=== PATIENT | female | born 1965 | race Hispanic/Latino ===

== ENCOUNTER 2017-03-16 14:14 | Inpatient (IN) | payer SELFPAY ==
[~2017-03-16] VITALS: Ht 157.5 cm; Wt 67.4 kg
[~2017-03-16 14:14] MED LIST: ASPIRIN81 MG PO
[2017-03-16] MEDS ORDERED: SODIUM CHLORIDE 0.9% 1000ML 1,000 ML IV STA ×2 (15:43→15:53)
[2017-03-16] MEDS ORDERED: KETOROLAC TROMETHAMINE 30 MG/ML VIAL INJ STA (15:54)
[2017-03-16 15:56] LABS: BILIRUBIN,URINE NEGATIVE (NEGATIVE); CLARITY,URINE CLEAR (CLEAR); COLOR,URINE YELLOW (YELLOW); KETONES,URINE NEGATIVE (NEGATIVE); LEUKOCYTE ESTERASE ,URINE TRACE (NEGATIVE); NITRITE,URINE NEGATIVE (NEGATIVE); PROTEIN,URINE DIPSTICK NEGATIVE (NEGATIVE); URINE UROBILINOGEN 0.2 mg/dL (0.2 - 1)
[2017-03-16 15:56] LABS: BASOPHILS % 0.5 % (0.0-1.0); EOSINOPHILS % 0.5 % (0.0-6.0); HEMATOCRIT 42.7 % (34.2-44.1); HEMOGLOBIN 14.4 g/dL (12.0-16.0); LYMPHOCYTES # (AUTO) 2.2 (1.0-3.2); LYMPHOCYTES % 25.1 % (18.0-39.1); MEAN CORPUSCULAR HEMOGLOBIN 29.3 pg (28-32); MEAN CORPUSCULAR HGB CONC 33.7 g/dL (31-35); MEAN CORPUSCULAR VOLUME 86.8 fL (81-99); MONOCYTES # (AUTO) 0.6 (0.2-0.8); NEUTROPHILS # (AUTO) 5.8 (2.1-6.9); NEUTROPHILS % 66.6 % (38.7-80.0); PLATELET COUNT 246 x10e3/uL (140-360); RED BLOOD COUNT 4.92 x10e6/uL (3.6-5.1); RED CELL DISTRIBUTION WIDTH 13.1 % (11.7-14.4)
[2017-03-16 15:57] LABS: WBC,URINE (MAN) 0-5 /HPF (0-5)
[2017-03-16] MEDS ORDERED: ONDANSETRON HCL INJ 2 MG/ML VIAL IV STA (15:57)
[2017-03-16 15:58] LABS: BACTERIA,URINE FEW /HPF; EPITHELIAL CELLS,URINE FEW /LPF
[2017-03-16] MEDS ORDERED: ONDANSETRON HCL INJ 2 MG/ML VIAL ONE (16:03)
[2017-03-16 16:16] LABS: ALANINE AMINOTRANSFERASE 19 IU/L (0-55); ALBUMIN 4.3 g/dL (3.5-5.0); ALBUMIN/GLOBULIN RATIO 1.3 (0.8-2.0); ALKALINE PHOSPHATASE 92 IU/L (40-150); ANION GAP 12.3 mmol/L (8-16); BLOOD UREA NITROGEN 13 mg/dL (7-26); BUN/CREATININE RATIO 17 (6-25); CALCIUM 9.5 mg/dL (8.4-10.2); CARBON DIOXIDE 26 mmol/L (22-29); CHLORIDE 107 mmol/L (98-107); CREATININE, SERUM 0.75 mg/dL (0.57-1.11); EST GLOMERULAR FILTRATION RATE > 60 ML/MIN (60-); GLUCOSE 109 mg/dL (74-118); POTASSIUM 4.3 mmol/L (3.5-5.1); SODIUM 141 mmol/L (136-145)
--- NOTE | 2017-03-16 18:27 | Diagnostic Imaging Report ---
PROCEDURE:US GALLBLADDER COMPARISON:[facility], US, US GALLBLADDER, 09/19/2012, 23:36. INDICATIONS:ABD PAIN TECHNIQUE: Mauricio-scale and color doppler transverse and longitudinal images of the right upper quadrant of the abdomen were obtained. FINDINGS: Liver: 11.4 cm in right mid-clavicular line. Increased echogenicity. Several cystic lesions are again noted in the liver, as follows: * 1.5 x 1.1 x 1.7 cm cystic anechoic lesion in the left lobe. * 1.8 x 1.4 1.2 cm hypoechoic lesion in the right lobe adjacent to the gallbladder. * 2.7 x 2.0 x 2.9 cm anechoic cystic lesion in the right lobe anterior inferior aspect (previously measured 2.2 x 1.7 x 2.0 cm). * No other focal lesions. Main portal vein: 1.0 cm, hepatopetal flow Gallbladder: Several echogenic, shadowing stones are noted in the gallbladder lumen near the neck. Multiple echogenic non-shadowing foci with ringdown artifact in the gallbladder wall, predominantly in the body and fundus. Mild gallbladder wall thickening, measuring 0.4 cm. Common Bile Duct: 0.4 cm Sonographic Valladares's sign: Positive Right kidney: 9.8 cm. Normal echogenicity. No solid masses or hydronephrosis. Previously visualized hyperechoic focus in the right kidney is not seen in the current exam. Pancreas: The visualized portions are unremarkable. Inferior vena cava: Patent Aorta: Within normal limits Ascites: None in the right upper quadrant of the abdomen. CONCLUSION: 1. Cholelithiasis with mild gallbladder wall thickening and positive Valladares's sign. Findings highly suspicious for acute cholecystitis. 2. 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 3. Simple hepatic cysts, as described. The largest cyst in the right lobe has increased in size since prior ultrasound dated 09/19/2012. Mainor Miller M.D. Dictated by: Mainor Miller M.D. on 03/16/2017 at 18:36 Electronically approved by: Mainor Miller M.D. on 03/16/2017 at 18:36
[2017-03-16] MEDS ORDERED: MORPHINE SULFATE 5 MG/ML VIAL IV ONE (18:45)
[2017-03-16] MEDS ORDERED: CEFOXITIN 1GM/ DEXTROSE 50ML 50 ML IV SCH (21:00)
[2017-03-16] MEDS: CEFOXITIN SOD 1 GM VIAL IV SCH (21:50)
[2017-03-16] MEDS: SODIUM CHLORIDE 0.9% 1000ML 1,000 ML IV SCH (21:59)
[2017-03-16] MEDS: METRONIDAZOLE 500MG/NS 100ML 100 ML IV SCH (22:00)
[2017-03-16 22:47] VITALS: BP 148/70
[2017-03-16 23:54] VITALS: BP 148/70
[2017-03-17] MEDS: METRONIDAZOLE 500MG/NS 100ML 100 ML IV SCH ×4 (03:14→20:23)
[2017-03-17 04:00] VITALS: BP 110/64
[2017-03-17] MEDS: SODIUM CHLORIDE 0.9% 1000ML 1,000 ML IV SCH ×3 (04:46→22:50)
[2017-03-17] MEDS: CEFOXITIN SOD 1 GM VIAL IV SCH ×3 (05:09→20:07)
--- NOTE | 2017-03-17 07:06 | Consultation ---
DATE OF CONSULTATION: March 17, 2017 Patient is a 51-year-old female who presents with complaints of epigastric and right upper quadrant abdominal pain. Patient says she has had the pain for 3 weeks. Came to the emergency room where workup revealed gallstones with possibly mildly thickened wall. She has not had any fever. She has some nausea. No vomiting. There are no symptoms of jaundice. PAST MEDICAL HISTORY: Otherwise unremarkable. She denies chronic medical problems. She has not had previous surgery. CURRENT MEDICATIONS: No current medications. ALLERGIES: NO KNOWN ALLERGIES. FAMILY HISTORY: Noncontributory. SOCIAL HISTORY: The patient does not smoke cigarettes or drink alcohol. REVIEW OF SYSTEMS: As stated above. She has had no fever. No weight loss. PHYSICAL EXAMINATION GENERAL: The patient is awake, alert and in no distress. VITALS: Normal. HEENT: Unremarkable. Sclerae are nonicteric. NECK: Supple no masses. LUNGS: Equal breath sounds are clear bilaterally. CARDIAC: Regular rate and rhythm with no murmur. ABDOMEN: Soft. There is mild epigastric tenderness. There is no mass. There are no signs of peritonitis. There is no organomegaly. EXTREMITIES: No edema. Pulses are palpable. NEUROLOGIC: Grossly intact. LAB TESTS: White blood cell count is normal with normal differential. Hemoglobin and hematocrit are normal. Chemistries also are normal. ASSESSMENT: This is a 51-year-old female with symptoms suggestive of acute and chronic cholecystitis with cholelithiasis. She will likely benefit from cholecystectomy. PLAN: Schedule for tomorrow. Procedure was explained to the patient. Thank you asking see me to see Ms. Schmitz. Job#: [id number] SHABBIR
[2017-03-17 07:20] LABS: BASOPHILS % 0.3 % (0.0-1.0); EOSINOPHILS # (AUTO) 0.1 (0.0-0.4); HEMATOCRIT 37.4 % (34.2-44.1); HEMOGLOBIN 12.4 g/dL (12.0-16.0); LYMPHOCYTES % 35.2 % (18.0-39.1); MEAN CORPUSCULAR HGB CONC 33.2 g/dL (31-35); MEAN CORPUSCULAR VOLUME 87.4 fL (81-99); MONOCYTES # (AUTO) 0.5 (0.2-0.8); MONOCYTES % 8.2 % (4.4-11.3); NEUTROPHILS # (AUTO) 3.2 (2.1-6.9); NEUTROPHILS % 55.1 % (38.7-80.0); PLATELET COUNT 202 x10e3/uL (140-360); RED BLOOD COUNT 4.28 x10e6/uL (3.6-5.1); RED CELL DISTRIBUTION WIDTH 13.2 % (11.7-14.4)
[2017-03-17 07:42] LABS: ALANINE AMINOTRANSFERASE 19 IU/L (0-55); ALBUMIN 3.2 g/dL (3.5-5.0); ALBUMIN/GLOBULIN RATIO 1.3 (0.8-2.0); ALKALINE PHOSPHATASE 64 IU/L (40-150); AMYLASE 45 U/L (25-125); ANION GAP 9.1 mmol/L (8-16); BLOOD UREA NITROGEN 12 mg/dL (7-26); BUN/CREATININE RATIO 17 (6-25); CALCIUM 8.4 mg/dL (8.4-10.2); CARBON DIOXIDE 25 mmol/L (22-29); CHLORIDE 112 mmol/L (98-107); EST GLOMERULAR FILTRATION RATE > 60 ML/MIN (60-); GLUCOSE 102 mg/dL (74-118); LIPASE 15 U/L (8-78); POTASSIUM 4.1 mmol/L (3.5-5.1); SODIUM 142 mmol/L (136-145)
[2017-03-17 08:42] VITALS: BP 147/73
[2017-03-17] MEDS: ACETAMINOPHEN 325 MG TAB PO PRN ×2 (09:48→14:47)
[2017-03-17] MEDS: HYDROMORPHONE 2MG/ML INJ IV PRN ×2 (09:52→14:47)
[2017-03-17] MEDS: ONDANSETRON HCL INJ 2 MG/ML VIAL IV PRN ×2 (09:52→20:07)
--- NOTE | 2017-03-17 12:02 | History and Physical ---
CHIEF COMPLAINT: Abdominal pain and chest discomfort. HISTORY OF PRESENT ILLNESS: Ms. Schmitz is a 51-year-old female. She presented with abdominal pain to the emergency room. In the emergency room, patient underwent an ultrasound of the gallbladder, which showed cholelithiasis with mild gallbladder wall thickening and positive Valladares sign. Patient was admitted for cholelithiasis and abdominal pain. IV antibiotics and IV pain medications were started. Patient only speaks Swedish. Daughter is at the bedside. She speaks Swedish as well. She told me the patient has episodes of high blood pressure and has dizziness in the past. She does not see a physician on a regular basis. REVIEW OF SYSTEMS: GENERAL: Denies any fever or chills. HEAD: Denies any head trauma, head injury. ENT: Denies any earache, nosebleed, throat pain. CVS: Denies any chest pain. RESPIRATORY: Denies any shortness of breath. GI: Abdominal pain. Occasional dizziness. The rest of the review of systems is negative except as in HPI. PAST MEDICAL HISTORY: Possible hypertension. PAST SURGICAL HISTORY: Surgery for kidney stones in 2016. 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 She denies any alcohol use. PHYSICAL EXAMINATION: VITAL SIGNS: Temperature 98, pulse of 77, blood pressure 147/73, respiratory rate of 18. SKIN: Warm and dry. CHEST: Clear. ABDOMEN: Soft. Mild right upper quadrant tenderness. Bowel sounds audible. No hepatosplenomegaly. EXTREMITIES: No clubbing, cyanosis or edema. NEUROLOGIC: Awake and alert. No focal neurological deficit. LABORATORIES: White count of 8000, hemoglobin 14, platelets 246. Chemistry within normal limits. AST, ALT are within normal limits. ASSESSMENT/PLAN: 1. Ms. Schmitz is a 51-year-old female who presented with abdominal pain. Ultrasound showing cholelithiasis. Plan surgical consult. 2. Continue IV hydration. Blood pressure slightly on the higher side. Likely this is because of the pain. Continue IV analgesics. Job#: [id number] [place]
[2017-03-17 13:46] VITALS: BP 122/63
[2017-03-17 18:54] VITALS: BP 128/66
[2017-03-17 20:00] VITALS: BP 120/62
[2017-03-17 20:07] VITALS: BP 120/62
[2017-03-18] VITALS (7 sets, daily range): BP systolic 117–138; BP diastolic 63–75
[2017-03-18] MEDS: SODIUM CHLORIDE 0.9% 1000ML 1,000 ML IV SCH ×3 (01:15→12:46)
[2017-03-18] MEDS: METRONIDAZOLE 500MG/NS 100ML 100 ML IV SCH ×4 (03:06→21:00)
[2017-03-18] MEDS: CEFOXITIN SOD 1 GM VIAL IV SCH ×3 (05:38→21:00)
[2017-03-18] MEDS ORDERED: BUPIVACAINE HCL 0.5% INJ 30 ML VIAL INJ ONE (06:16)
--- NOTE | 2017-03-18 07:58 | Operative Report ---
DATE OF PROCEDURE: March 18, 2017 PREOPERATIVE DIAGNOSIS: Acute and chronic cholecystitis and cholelithiasis. POSTOPERATIVE DIAGNOSIS: Acute and chronic cholecystitis and cholelithiasis. PROCEDURES 1. Diagnostic laparoscopy. 2. Laparoscopic cholecystectomy. PARAMEDIC INSTRUCTOR: None. ANESTHESIA: General. INDICATIONS AND FINDINGS: Patient is a 51-year-old female who was admitted with the complaints of epigastric right upper quadrant abdominal pain. Workup revealed gallstones. At surgery, the patient's gallbladder was mildly edematous. Cystic duct was about 3 mm in diameter. Common bile duct was about 8 mm in diameter. Liver, stomach and lower abdomen all appeared normal except for some adhesions involving the uterus. TECHNIQUE: After adequate general endotracheal anesthesia and with the patient in the supine position, the abdomen was prepped and draped in a sterile fashion with Turner solution. Skin of the umbilicus was infiltrated with 0.5% Marcaine. An incision was made in the umbilicus. Abdominal wall was elevated and Veress needle was introduced. Pneumoperitoneum was then created. A 10-mm trocar and cannula was passed through the umbilical wound. The laparoscopic camera was introduced. Initial laparoscopy revealed the gallbladder to be mildly distended and mildly edematous. There were some adhesions in the lower abdomen involving the uterus. A 10-mm trocar and cannula was placed in the epigastrium and two 5-mm trocars and cannulas were placed in the right upper quadrant. These were placed under direct vision. Fundus of the gallbladder was grasped and retracted superiorly. There were adhesions over the neck and fundus of the gallbladder involving omentum and these were lysed staying close the gallbladder. Neck of the gallbladder was grasped and retracted laterally. Peritoneum over the neck of the gallbladder was incised. The gallbladder cystic duct junction was dissected free. Cystic artery was also dissected free. The neck of the gallbladder completely dissected free. Cystic artery was divided between Hemoclips close to the gallbladder. Cystic duct also divided between Hemoclips with 3 clips being left on the common bile duct side. The gallbladder was dissected free from the liver using scissors and electrocautery. Once it was entirely free, it was placed into an Endopouch and brought out through the epigastric cannula and contained at least 1 stone. Gallbladder bed was inspected for hemostasis, which was seen to be adequate. It was irrigated with saline. All fluid aspirated. Inspected once again for hemostasis, which was seen to be adequate. Instruments and cannulas were then removed. Pneumoperitoneum was evacuated. Wounds were then closed. Fascia in the umbilical and epigastric wound closed with 0 Vicryl. Skin to all wounds closed with dax. Sterile dressings applied to each wound. Patient tolerated the procedure well. Estimated blood loss was 10 mL. There were no complications. All counts were correct. Patient was taken to the recovery room in satisfactory condition. Job#: [id number] RI cc:NILDA JIMÉNEZ M.D.
[2017-03-18] MEDS: MORPHINE SULFATE 4 MG/ML SYR IV PRN ×2 (08:30→11:25)
[2017-03-18] MEDS: ONDANSETRON HCL INJ 2 MG/ML VIAL IV PRN ×2 (08:32→11:25)
[2017-03-18] MEDS: HYDROMORPHONE 2MG/ML INJ IV PRN ×3 (08:32→16:09)
[2017-03-18] MEDS: ACETAMINOPHEN 325 MG TAB PO PRN ×2 (11:25→16:09)
[2017-03-18] MEDS ORDERED: LABETALOL HCL IV 5 MG/ML 20ML MDV ONE (17:08)
[2017-03-18] MEDS ORDERED: ONDANSETRON HCL INJ 2 MG/ML VIAL ONE (17:08)
[2017-03-18] MEDS ORDERED: SEVOFLURANE INHAL SOLN 250 ML PEN BTL ONE (17:08)
[2017-03-18] MEDS ORDERED: GLYCOPYRROLATE INJ 1MG/ 5 ML SYR ONE (17:08)
[2017-03-18] MEDS ORDERED: PROPOFOL IV EMULSION 10 MG/ML 20 ML VIAL ONE (17:08)
[2017-03-18] MEDS ORDERED: NEOSTIGMINE 5 MG/5ML SYR ONE (17:08)
[2017-03-18] MEDS ORDERED: ROCURONIUM BROMIDE 10 MG/ML 5ML VIAL ONE (17:08)
[2017-03-18] MEDS ORDERED: ACETAMINOPHEN 1000 MG/100 ML IV ONE (17:08)
[2017-03-18] MEDS ORDERED: LIDOCAINE HCL 2% LOCAL INJ 5 ML SDV VIAL INJ ONE (17:08)
[2017-03-18] MEDS ORDERED: DEXAMETHASONE SOD PHOS INJ 4 MG/ML VIAL ONE (17:08)
[2017-03-18] MEDS ORDERED: FENTANYL CITRATE/PF 100MCG/2 ML INJ ONE (17:17)
[2017-03-18] MEDS ORDERED: MORPHINE SULFATE INJ 10 MG/ML ONE (17:17)
[2017-03-18] MEDS ORDERED: MIDAZOLAM HCL 2 MG/2 ML VIAL ONE (17:17)
--- NOTE | 2017-03-18 23:26 | Progress Note ---
DATE: March 18, 2017 The patient is doing very well. Denies any complaints. Status post cholecystectomy. PHYSICAL EXAMINATION VITAL SIGNS: Temperature 98, pulse 80, blood pressure 127/63, respiratory rate 18. CHEST: Clear. ABDOMEN: Soft. EXTREMITIES: No edema. NEURO: Awake and alert. LABS: Reviewed. No new labs. ASSESSMENT AND PLAN: Acute cholecystitis, status post cholecystectomy. The patient will be discharged once okay with surgery. I will order physical therapy evaluation and treatment. Job#: [id number] [place]
[2017-03-19 00:25] VITALS: BP 153/72
[2017-03-19] MEDS: ONDANSETRON HCL INJ 2 MG/ML VIAL IV PRN (00:27)
[2017-03-19] MEDS: HYDROMORPHONE 2MG/ML INJ IV PRN (00:28)
[2017-03-19] MEDS: METRONIDAZOLE 500MG/NS 100ML 100 ML IV SCH ×3 (03:28→15:07)
[2017-03-19 04:00] VITALS: BP 113/56
[2017-03-19] MEDS: SODIUM CHLORIDE 0.9% 1000ML 1,000 ML IV SCH ×2 (04:46→12:46)
[2017-03-19] MEDS: CEFOXITIN SOD 1 GM VIAL IV SCH ×2 (05:22→12:49)
[2017-03-19 07:10] LABS: BASOPHILS % 0.2 % (0.0-1.0); EOSINOPHILS % 0.1 % (0.0-6.0); HEMATOCRIT 33.8 % (34.2-44.1); HEMOGLOBIN 11.1 g/dL (12.0-16.0); LYMPHOCYTES % 17.1 % (18.0-39.1); MEAN CORPUSCULAR HGB CONC 32.8 g/dL (31-35); MEAN CORPUSCULAR VOLUME 88.3 fL (81-99); MONOCYTES # (AUTO) 0.8 (0.2-0.8); MONOCYTES % 6.5 % (4.4-11.3); NEUTROPHILS # (AUTO) 8.8 (2.1-6.9); NEUTROPHILS % 75.8 % (38.7-80.0); PLATELET COUNT 177 x10e3/uL (140-360); RED BLOOD COUNT 3.83 x10e6/uL (3.6-5.1); RED CELL DISTRIBUTION WIDTH 13.3 % (11.7-14.4)
[2017-03-19 07:57] VITALS: BP 133/74
[2017-03-19 07:59] LABS: ANION GAP 10.7 mmol/L (8-16); BLOOD UREA NITROGEN 9 mg/dL (7-26); BUN/CREATININE RATIO 12 (6-25); CALCIUM 8.3 mg/dL (8.4-10.2); CARBON DIOXIDE 23 mmol/L (22-29); CHLORIDE 109 mmol/L (98-107); CREATININE, SERUM 0.73 mg/dL (0.57-1.11); EST GLOMERULAR FILTRATION RATE > 60 ML/MIN (60-); GLUCOSE 102 mg/dL (74-118); POTASSIUM 3.7 mmol/L (3.5-5.1); SODIUM 139 mmol/L (136-145)
[2017-03-19] MEDS: HYDROCODONE/APAP 5MG-325MG TAB PO PRN ×2 (09:00→12:40)
[2017-03-19 11:05] VITALS: BP 133/74
[2017-03-19 12:09] VITALS: BP 146/74
[2017-03-19] MEDS ORDERED: AMOXICILLIN250 MG PO (15:51)
[2017-03-19] MEDS ORDERED: ULTRAM50 MG PO (15:57)
[2017-03-19] MEDS ORDERED: FLAGYL250 MG PO (15:57)
[2017-03-19 16:32] VITALS: BP 123/70
--- NOTE | 2017-03-19 18:15 | Discharge Summary ---
FINAL DIAGNOSES 1. Acute cholecystitis. 2. Abdominal pain. ADMISSION HISTORY AND HOSPITAL COURSE: Ms. Schmitz is a 51-year-old female admitted with cholecystitis. Patient underwent laparoscopic cholecystectomy by Dr. Ceron. Postoperatively, she has been doing well. She will be discharged home on amoxicillin and Flagyl along with tramadol as needed for pain control. She does not have insurance, and that is why I have given her amoxicillin and Flagyl instead of Augmentin. She will follow up with her primary care physician. NILDA JIMÉNEZ MD Job#: [id number] [place]
== END 2017-03-19 16:56 | disposition home or self-care (01) | DRG 419 ==
LOC: ER 14:14 → MED/SURG 22:23
PROVIDERS: ADMIT Internal Medicine; ATTEND Internal Medicine
PROC: 0FT44ZZ Resection of Gallbladder, Percutaneous Endoscopic Approach (ICD-10-PCS; principal; 2017-03-18 06:48)
DX: K80.12 Calculus of gallbladder with acute and chronic cholecystitis without obstruction (principal); F17.210 Nicotine dependence, cigarettes, uncomplicated
CPT/HCPCS: 36415; 76705; 80048; 80053; 81001; 82150; 83690; 84702; 85025; 88304; 93005; 99284; J0694; J1100; J1885; J2001; J2250; J2270; J2405; J7030

== ENCOUNTER 2020-11-19 16:22 | Emergency (ER) | payer SELFPAY ==
[~2020-11-19] VITALS: Ht 157.5 cm; Wt 64.4 kg
[~2020-11-19 16:22] MED LIST changes: +AMOXICILLIN250 MG PO; +FLAGYL250 MG PO; +ULTRAM50 MG PO
[2020-11-19] MEDS ORDERED: MORPHINE SULFATE INJ 4 MG/ML INJ 1ML IV STA (16:34)
[2020-11-19] MEDS ORDERED: ONDANSETRON HCL INJ 2MG/ML 2ML 2 MG/ML VIAL IV STA (16:34)
[2020-11-19] MEDS ORDERED: SODIUM CHLORIDE 0.9% 1000ML 1,000 ML IV STA (16:34)
[2020-11-19 16:57] LABS: BASOPHILS % 0.6 % (0.0-1.0); EOSINOPHILS # (AUTO) 0.1 (0.0-0.4); EOSINOPHILS % 1.4 % (0.0-6.0); HEMATOCRIT 41.7 % (34.2-44.1); LYMPHOCYTES # (AUTO) 2.6 (1.0-3.2); LYMPHOCYTES % 39.8 % (18.0-39.1); MEAN CORPUSCULAR HEMOGLOBIN 28.5 pg (28-32); MEAN CORPUSCULAR HGB CONC 33.6 g/dL (31-35); MEAN CORPUSCULAR VOLUME 84.8 fL (81-99); MONOCYTES # (AUTO) 0.5 (0.2-0.8); MONOCYTES % 8.2 % (4.4-11.3); NEUTROPHILS # (AUTO) 3.2 (2.1-6.9); NEUTROPHILS % 49.7 % (38.7-80.0); PLATELET COUNT 218 x10e3/uL (140-360); RED BLOOD COUNT 4.92 x10e6/uL (3.6-5.1)
[2020-11-19 17:11] LABS: ALBUMIN 4.6 g/dL (3.5-5.0); ALBUMIN/GLOBULIN RATIO 1.5 (0.8-2.0); ANION GAP 14.7 mmol/L (8-16); CALCIUM 9.7 mg/dL (8.4-10.2); CREATININE, SERUM 0.76 mg/dL (0.57-1.11); POTASSIUM 3.7 mmol/L (3.5-5.1)
[2020-11-19 17:12] LABS: CLARITY,URINE CLEAR (CLEAR); COLOR,URINE YELLOW (YELLOW); KETONES,URINE NEGATIVE (NEGATIVE); LEUKOCYTE ESTERASE ,URINE NEGATIVE (NEGATIVE); NITRITE,URINE NEGATIVE (NEGATIVE); PROTEIN,URINE DIPSTICK NEGATIVE (NEGATIVE); URINE UROBILINOGEN 0.2 mg/dL (0.2 - 1)
[2020-11-19 17:23] LABS: BACTERIA,URINE MANY /HPF; EPITHELIAL CELLS,URINE MANY /LPF; WBC,URINE (MAN) 0-5 /HPF (0-5)
[2020-11-19] MEDS ORDERED: KETOROLAC TROMETHAMINE 30 MG/ML VIAL IV STA (17:50)
== END 2020-11-19 18:54 | disposition home or self-care (01) ==
LOC: ER 16:32
DX: N23 Unspecified renal colic (principal); Z87.442 Personal history of urinary calculi; I10 Essential (primary) hypertension; E11.9 Type 2 diabetes mellitus without complications; I25.2 Old myocardial infarction; Z79.82 Long term (current) use of aspirin
CPT/HCPCS: 36415; 74176; 80053; 81001; 81025; 85025; 87086; 99284; J2270; J2405; J7030